=== PATIENT | female | born 1985 | race Caucasian/White ===

== ENCOUNTER 2022-07-24 22:32 | Emergency (ER) | payer OTHER ==
[2022-07-24 22:54] VITALS: BP 126/87; PULSE 66; RESP 20; TEMP 97.9; BMI 25.4
[2022-07-24] MEDS ORDERED: SULFAMETHOXAZOLE/TRIMETHOPRIM 400MG/80MG S.S. TABLET PO ONE (23:24)
[2022-07-24] MEDS ORDERED: SULFAMETHOXAZOLE/TRIMETHOPRIM 800MG/160MG D.S. TABLET ONE (23:36)
== END 2022-07-24 23:59 | disposition home or self-care (01) ==
LOC: JER 22:32
DX: H00.012 Hordeolum externum right lower eyelid (principal)
CPT/HCPCS: 99283-25